=== PATIENT | female | born 1975 | race Caucasian/White ===

== ENCOUNTER 2019-01-23 19:37 | Inpatient (IN) | payer BC ==
[2019-01-23] MEDS ORDERED: HYDROmorphone 0.5 MG/0.5 ML Syringe IVPUSH ONE (20:11)
[2019-01-23] MEDS ORDERED: Ondansetron 4 MG/2 ML SDV IVPUSH ONE (20:11)
[2019-01-23] MEDS ORDERED: Sodium Chloride 0.9% 1,000 ML IV SCH (20:15)
--- NOTE | 2019-01-23 20:16 | EDM.PDOC ---
ED HPI GENERAL MEDICAL PROBLEM - General Chief Complaint: Abdominal Pain Stated Complaint: ABD PAIN Time Seen by Provider: 01/23/19 20:05 Source of Information: Reports: Patient History Limitations: Reports: No Limitations - History of Present Illness INITIAL COMMENTS - FREE TEXT/NARRATIVE: 43-year-old female who has a history of a colectomy 8 years ago after a perforation, has had 2 bowel obstructions since that time. 4 hours ago she started developing upper abdominal pain, the pressure is become worse with nausea and feels very similar to previous bowel obstructions. She did have a bowel movement in the last 4 hours. No fevers or chills, no chest pain, no shortness of breath or rash. No urinary symptoms. Onset: Sudden Duration: Hour(s): (symptoms started fairly sudden 4 hours ago) Location: Reports: Abdomen Improves with: Reports: None Worsens with: Reports: None Associated Symptoms: Reports: Nausea/Vomiting. Denies: Chest Pain, Shortness of Breath Upper Abdomen Pain Score (Numeric/FACES): 4 - Related Data Allergies Allergy/AdvReac Type Severity Reaction Status Date / Time No Known Allergies Allergy Verified 01/23/19 19:52 Home Meds: Home Meds Sertraline HCl [Zoloft] 75 mg PO DAILY 08/23/14 [History] Gabapentin 300 mg PO BEDTIME 05/25/16 [History] Past Medical History HEENT History: Reports: Impaired Vision Other HEENT History: contacts and glasses Cardiovascular History: Reports: High Cholesterol Respiratory History: Reports: Sleep Apnea Other Respiratory History: c-pap Gastrointestinal History: Reports: Bowel Obstruction, Chronic Diarrhea [employer]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: Endometriosis, Fibroids, Polycystic Ovaries Musculoskeletal History: Reports: Back Pain, Chronic Psychiatric History: Reports: Anxiety, Depression, Panic Attack, PTSD Oncologic (Cancer) History: Reports: Other (See Below) Other Oncologic History: basil cell CA Dermatologic History: Reports: Eczema - Infectious Disease History Infectious Disease History: Reports: Chicken Pox - Past Surgical History GI Surgical History: Reports: Appendectomy, Colon, Colonoscopy, Hernia Repair/ Other, Lysis of Adhesions, Small Bowel Female Surgical History: Reports: Hysterectomy, Tubal Ligation Dermatological Surgical History: Reports: Skin Biopsy Social & Family History - Tobacco Use Smoking Status *Q: Current Every Day Smoker Years of Tobacco use: 25 Packs/Tins Daily: 0.5 Used Tobacco, but Quit: No Second Hand Smoke Exposure: Yes - Caffeine Use Caffeine Use: Reports: Energy Drinks Caffeine Use Comment: 1/day - Alcohol Use Days Per Week of Alcohol Use: 2 Number of Drinks Per Day: 4 Total Drinks Per Week: 8 - Recreational Drug Use Recreational Drug Use: No - Living Situation & Occupation Living situation: Reports: , with Spouse ED ROS GENERAL - Review of Systems Review Of Systems: See Below Constitutional: Reports: Malaise. Denies: Fever, Chills HEENT: Reports: No Symptoms Respiratory: Denies: Shortness of Breath Cardiovascular: Denies: Chest Pain GI/Abdominal: Reports: No Symptoms, Abdominal Pain, Nausea, Vomiting. Denies: Constipation, Diarrhea : Reports: No Symptoms Skin: Reports: No Symptoms Neurological: Reports: No Symptoms Psychiatric: Reports: No Symptoms ED EXAM, GI/ABD - Physical Exam Exam: See Below Exam Limited By: No Limitations General Appearance: Alert, Mild Distress Eyes: Bilateral: Normal Appearance Respiratory/Chest: No Respiratory Distress Cardiovascular: Regular Rate, Rhythm GI/Abdominal Exam: Normal Bowel Sounds, Soft, Tender (Very tender with guarding across the upper abdomen) Extremities: No: Pedal Edema Neurological: Alert, Oriented Psychiatric: Anxious Skin Exam: Warm, Dry Course - Vital Signs Last Recorded V/S: Last Vital Signs Temp 99.0 F 01/23/19 22:42 Pulse 81 01/23/19 22:42 Resp 16 01/23/19 22:42 BP 143/69 H 01/23/19 22:42 Pulse Ox 96 01/23/19 22:42 - Orders/Labs/Meds Orders: Active Orders 24 hr Category Date Time Status Sodium Chloride 0.9% [Normal Saline] 1,000 ml Med 01/23/19 20:15 Active IV ASDIRECTED Medication Orders Hydromorphone HCl (Dilaudid) 0.5 mg IVPUSH Q2H PRN PRN Reason: PAIN Last Admin: 01/23/19 23:17 Dose: 0.5 mg Sodium Chloride (Normal Saline) 1,000 mls @ 500 mls/hr IV ASDIRECTED KAMRAN Last Admin: 01/23/19 20:25 Dose: 500 mls/hr Dextrose/Lactated Ringer's (Dextrose 5%-Lactated Ringers) 1,000 mls @ 200 mls/ hr IV ASDIRECTED KAMRAN Last Admin: 01/23/19 23:05 Dose: 200 mls/hr Ondansetron HCl (Zofran) 4 mg IVPUSH Q6H PRN PRN Reason: Nausea/VOMITING Labs: Laboratory Tests 01/23/19 01/23/19 01/23/19 Range/Units 20:10 20:10 20:11 WBC 10.2 (4.5-11.0) K/uL RBC 5.76 H (3.30-5.50) M/uL Hgb 17.4 H D (12.0-15.0) g/dL Hct 51.7 H (36.0-48.0) % MCV 90 (80-98) fL MCH 30 (27-31) pg MCHC 34 (32-36) % Plt Count 187 (150-400) K/uL Neut % (Auto) 58 (36-66) % Lymph % (Auto) 28 (24-44) % Norman % (Auto) 9 H (2-6) % Eos % (Auto) 4 (2-4) % Baso % (Auto) 1 (0-1) % Sodium 136 L (140-148) mmol/L Potassium 4.4 (3.6-5.2) mmol/L Chloride 100 (100-108) mmol/L Carbon Dioxide 26 (21-32) mmol/L Anion Gap 14.4 H (5.0-14.0) mmol/L BUN 25 H (7-18) mg/dL Creatinine 1.4 H (0.6-1.0) mg/dL Est Cr Clr Drug Dosing 45.66 mL/min Estimated GFR (MDRD) 41 L (>60) Glucose 103 (74-106) mg/dL Calcium 9.3 (8.5-10.1) mg/dL Total Bilirubin 0.3 (0.2-1.0) mg/dL AST 27 (15-37) U/L ALT 37 (12-78) U/L Alkaline Phosphatase 108 (46-116) U/L Total Protein 8.0 (6.4-8.2) g/dL Albumin 4.1 (3.4-5.0) g/dL Globulin 3.9 H (2.3-3.5) g/dL Albumin/Globulin Ratio 1.1 L (1.2-2.2) Lipase 200 (73-393) U/L Meds: Medications Generic Name Dose Route Start Last Admin Trade Name Freq PRN Reason Stop Dose Admin Hydromorphone HCl 0.5 mg 01/23/19 22:53 01/23/19 23:17 Dilaudid IVPUSH 0.5 mg Q2H PRN Administration PAIN Sodium Chloride 1,000 mls @ 500 mls/hr 01/23/19 20:15 01/23/19 20:25 Normal Saline IV 500 mls/hr ASDIRECTED KAMRAN Administration Dextrose/Lactated Ringer's 1,000 mls @ 200 mls/hr 01/23/19 23:00 01/23/19 23: 05 Dextrose 5%-Lactated Ringers IV 200 mls/hr ASDIRECTED KAMRAN Administration Ondansetron HCl 4 mg 01/23/19 22:50 Zofran IVPUSH Q6H PRN Nausea/VOMITING Discontinued Medications Generic Name Dose Route Start Last Admin Trade Name Freq PRN Reason Stop Dose Admin Hydromorphone HCl 0.5 mg 01/23/19 20:11 01/23/19 20:28 Dilaudid IVPUSH 01/23/19 20:12 0.5 mg ONETIME ONE Administration Ondansetron HCl 4 mg 01/23/19 20:11 01/23/19 20:26 Zofran IVPUSH 01/23/19 20:12 4 mg ONETIME ONE Administration Pantoprazole Sodium 40 mg 01/23/19 23:00 01/23/19 23:14 Protonix Iv IVPUSH 01/23/19 23:01 40 mg ONETIME ONE Administration - Re-Assessments/Exams Free Text/Narrative Re-Assessment/Exam: 01/23/19 20:16 An IV was started, patient was given 4 mg of IV Zofran and 0.5 mg of IV Dilaudid. 500 mL normal saline an hour was initiated, CBC CMP and lipase ordered. She will need a CT scan of the abdomen without contrast. 01/23/19 21:33 IV medications did help the patient's pain. Lipase was normal, BUN and creatinine were mildly elevated but the rest of her labs are reassuring. The CT of the abdomen was ordered without contrast. 01/23/19 21:48 IMPRESSION: 1. Stable postoperative changes from a subtotal colectomy. 2. Mild dilatation of small bowel loops with fluid levels and mild stool stasis. This finding is similar to the prior exam and could be chronic. However , a recurrent partial small bowel obstruction is also possible. 3. Remainder of the exam is unremarkable. Discussed above findings with Dr. Lewis and the patient and her family. She'll be admitted tonight with IV hydration and pain control, two-view abdominal x- ray in the a.m. and surgical evaluation. If she worsens tonight an NG can be considered. Departure - Departure Time of Disposition: 22:28 Disposition: Admitted As Inpatient 64 Clinical Impression: Small bowel obstruction Abdominal pain Qualifiers: Abdominal location: upper abdomen, unspecified Qualified Code(s): R10.10 - Upper abdominal pain, unspecified - Discharge Information - My Orders Last 24 Hours: My Active Orders 01/23/19 20:15 Sodium Chloride 0.9% [Normal Saline] 1,000 ml IV ASDIRECTED - Assessment/Plan Last 24 Hours: My Active Orders 01/23/19 20:15 Sodium Chloride 0.9% [Normal Saline] 1,000 ml IV ASDIRECTED
--- NOTE | 2019-01-23 21:45 | CRLCT ---
INDICATION: Abdominal pain TECHNIQUE: CT abdomen and pelvis without contrast. COMPARISON: May 25, 2016 FINDINGS: Lower chest: Unremarkable. Liver: Normal in size and attenuation. No masses. Gallbladder and bile ducts: No stones or inflammation. No biliary dilatation. Pancreas: Unremarkable. No mass or inflammation. Spleen: Normal in size. No masses. Adrenal glands: Normal in size. No nodules. Kidneys: Normal in size. No masses, stones, or hydronephrosis. GI tract: Again demonstrated are postoperative changes from a subtotal colectomy. Mild dilatation of mid to distal small bowel loops with fluid levels and stool stasis, this is similar to the prior exam. No focal inflammation or mass. Vasculature: Unremarkable. Lymph nodes: No lymphadenopathy. Abdominal wall/Omentum/Peritoneum: Unremarkable. No sign of mass or infiltration. No free air or significant free fluid. Pelvis: Unremarkable. No pelvic masses. Bones: Unremarkable for age. IMPRESSION: 1. Stable postoperative changes from a subtotal colectomy. 2. Mild dilatation of small bowel loops with fluid levels and mild stool stasis. This finding is similar to the prior exam and could be chronic. However, a recurrent partial small bowel obstruction is also possible. 3. Remainder of the exam is unremarkable. Dictated by Adeel Arrington MD @ 01/23/2019 9:42:40 PM Please note that all CT scans at this facility use dose modulation, iterative reconstruction, and/or weight-based dosing when appropriate to reduce radiation dose to as low as reasonably achievable. Dictated by: Adeel Arrington MD @ 01/23/2019 21:42:46 (Electronically Signed)
[2019-01-23] MEDS ORDERED: Ondansetron 4 MG/2 ML SDV IVPUSH PRN (22:50)
[2019-01-23] MEDS ORDERED: HYDROmorphone 0.5 MG/0.5 ML Syringe IVPUSH PRN (22:53)
[2019-01-23] MEDS ORDERED: Pantoprazole 40 MG Vial IVPUSH ONE (23:00)
[2019-01-23] MEDS: Dextrose 5%-Lactated Ringers 1,000 ML IV SCH (23:05)
[2019-01-24] MEDS: Dextrose 5%-Lactated Ringers 1,000 ML IV SCH ×3 (04:10→19:11)
--- NOTE | 2019-01-24 05:06 | CRLCR ---
INDICATION: SMALL OBSTRUCTION. COMPARISON: CT 01/23/2019. FINDINGS: Supine and upright views of the abdomen and pelvis demonstrate an unobstructed bowel gas pattern. There are no dilated loops of small bowel or differential air-fluid levels. Numerous anastomotic suture noted throughout the abdomen. There is no evidence of free intraperitoneal air. Moderate retained formed stool. No pneumatosis. No acute osseous findings. IMPRESSION: Unobstructed bowel gas pattern. No evidence perforation or free air. Dictated by Wale Sinclair MD @ 01/24/2019 5:03:38 AM Dictated by: Wale Sinclair MD @ 01/24/2019 05:03:51 (Electronically Signed)
--- NOTE | 2019-01-24 09:28 | CONS ---
DATE OF SERVICE: 01/24/2019 REFERRING PHYSICIAN: CONSULTING PHYSICIAN: Terrie Haines PA-C HISTORY OF PRESENT ILLNESS: Valentin was admitted to the hospital yesterday. She is a 43-year- old female and presented to [facility] with abdominal pain. She has a history of a colectomy 8 years ago after bowel perforation and after that she had 2 surgeries for bowel obstruction. Abdominal pain is sudden onset, upper part of the abdomen, radiates across the right and the left associated with nausea and vomiting. Last bowel movement was 4 hours ago. She reports abdominal pain as bloating, pressure that comes and goes in waves, but does not ever completely let up. Has no other associated signs and symptoms. Aggravating factors, none and alleviating factors, none. The pain on the pain scale of 1-10, she states was a 10 when she came in, right now it is a 2-4. She currently is on IV fluids and has been n.p.o. Denies any episodes prior to this one. ALLERGIES: NO KNOWN MEDICAL ALLERGIES. HOME MEDICATIONS: 1. Sertraline (Zoloft) 75 mg p.o. daily. 2. Gabapentin 300 mg p.o. at bedtime for restless legs. PAST MEDICAL HISTORY: 1. HEENT: Wears corrective lenses for near and farsightedness. Wears contacts and glasses. 2. Cardiovascular History: High cholesterol. 3. Respiratory History: Sleep apnea, uses a CPAP. 4. GI: Chronic diarrhea after colectomy and history of bowel obstructions x2. 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 6. Musculoskeletal History: Chronic back pain. 7. Psychiatric History: Reports anxiety, depression, panic attacks, and PTSD. 8. Skin History: Basal cell carcinoma and eczema. PAST SURGICAL HISTORY: Includes appendectomy, colectomy, hernia repair, 2 small bowel obstructions, hysterectomy, tubal ligation, and skin biopsies. SOCIAL HISTORY: . Smokes 1/2 pack a day. Caffeine Use: Energy drinks 1 per day. Alcohol Use: 8 per week. REVIEW OF SYSTEM: CONSTITUTIONAL: Denies any fever, chills, night sweats. Reports fatigue. HEENT: Negative. RESPIRATORY: Denies any shortness of breath or cough. CARDIOVASCULAR: No chest pain, fast or irregular heart beat. Denies any swelling in ankles or feet. GI: As above. : No UTI signs and symptoms. NEUROLOGIC: No headache, dizziness, or loss of coordination. PSYCHIATRIC: States is asymptomatic with medications. PHYSICAL EXAMINATION: GENERAL: Aniya Ibanez is a pleasant 43-year-old female. VITAL SIGNS: Height 5 feet 5 inches. Weight is 186 pounds. BMI 31. TPR 97.3, 65, and 16. Blood pressure 128/70. HEENT: Negative. NECK: Supple. HEART: Regular rate and rhythm. LUNGS: Clear. ABDOMEN: Soft. There is some minimal tenderness in all 4 quadrants. EXTREMITIES: Without peripheral edema. NEUROLOGIC: Intact. PSYCHIATRIC: Mood and affect appropriate. ASSESSMENT: 1. Partial small bowel obstruction. 2. Dehydration. 3. Chronic diarrhea. 4. Anxiety and depression. 5. Basal cell carcinoma. PLAN: 1. Remain n.p.o. with ice chips. 2. Zoloft 75 mg p.o. one daily started. 3. Gabapentin 300 mg p.o. at bedtime. 4. Check abdominal flat and upright in a.m. at 0400. 5. Check CBC, CMP, mag, and phos in a.m. 6. We will evaluate p.r.n. or in a.m. Terrie Haines PA-C /[id number]
[2019-01-24] MEDS: Sertraline 25 MG Tab PO SCH (09:36)
[2019-01-24] MEDS ORDERED: Gabapentin 300 MG Cap PO SCH (21:00)
[2019-01-25] MEDS: Dextrose 5%-Lactated Ringers 1,000 ML IV SCH (04:23)
--- NOTE | 2019-01-25 06:05 | CRLCR ---
Indication: Postop ileus Technique: Four views of the abdomen Comparison: 01/24/2019 Findings/Impression: : A nonobstructive bowel gas pattern. A few nondilated gas-filled bowel segments are nonspecific. Bowel sutures and surgical clips again seen. Stable osseous structures. Dictated by French Jacobs MD @ 01/25/2019 6:05:03 AM Dictated by: French Jacobs MD @ 01/25/2019 06:05:07 (Electronically Signed)
[2019-01-25 07:46] VITALS: BP 129/64
[2019-01-25] MEDS: Sertraline 25 MG Tab PO SCH (08:05)
--- NOTE | 2019-01-25 12:05 | DISCH ---
ADMISSION DIAGNOSES: 1. Partial small bowel obstruction. 2. Dehydration. 3. Chronic diarrhea. 4. Anxiety, depression. 5. Basal cell carcinoma. DISCHARGE DIAGNOSES: 1. Medical resolution of partial small bowel obstruction. 2. Status post dehydration. HISTORY: Aniya Ibanez is a pleasant 43-year-old female who presented to [facility] Emergency Department with abdominal pain, nausea, vomiting, and history of a partial small bowel obstruction. She was admitted to the hospital for observation with daily abdominal flat and upright, IV fluids. Diet was ice chips only. Her pain resolved. She had a bowel movement, passing flatus, and she was able to be discharged to home on 01/25/2019. REVIEW OF SYSTEMS: CONSTITUTIONAL: Denies any fever, chills, night sweats. Reports fatigue. HEENT: Negative. RESPIRATORY: No shortness of breath or cough. CARDIOVASCULAR: No chest pain, fast irregular heartbeat. Denies any swelling in ankles or feet. GASTROINTESTINAL: As above. GENITOURINARY: No UTI signs or symptoms. NEUROLOGIC: No headache, dizziness, loss of coordination. PSYCHIATRIC: Negative. PHYSICAL EXAMINATION: GENERAL: Aniya Ibanez is a pleasant 43-year-old female. VITAL SIGNS: Height is 5 feet 4.96 inches, weight is 186 pounds. TPR 97.1, 64, 16, blood pressure 129/64. HEENT: Negative. NECK: Supple. HEART: Regular rate and rhythm. LUNGS: Clear. ABDOMEN: Soft, flat, nontender. GENITOURINARY: Deferred. EXTREMITIES: Without peripheral edema. NEUROLOGIC: Intact. PSYCHIATRIC: Mood and affect appropriate. DISPOSITION: Discharged to home. CONDITION: Stable and improving. FOLLOWUP APPOINTMENT: With Luciano Lewis MD, on 02/07/2019 at 9 a.m. DIET: GI soft, low residue. ACTIVITY: As tolerated. May drive. DISCHARGE INSTRUCTIONS: Notify provider if any fever, increased pain, nausea, or vomiting. MEDICATIONS: Resume home medications. Sertraline/Zoloft 75 mg p.o. daily, gabapentin 300 mg p.o. at bedtime. The patient did receive dietary instruction prior to discharge.
== END 2019-01-25 09:20 | disposition home or self-care (01) | DRG 247 ==
LOC: JP.ED 19:37 → JP.2SS 21:50
PROVIDERS: ADMIT Surgery; ATTEND Surgery
DX: K56.600 Partial intestinal obstruction, unspecified as to cause (principal); F32.9 Major depressive disorder, single episode, unspecified; E86.0 Dehydration; H54.7 Unspecified visual loss; E78.00 Pure hypercholesterolemia, unspecified; G47.30 Sleep apnea, unspecified; R19.7 Diarrhea, unspecified; F41.0 Panic disorder [episodic paroxysmal anxiety]; F43.10 Post-traumatic stress disorder, unspecified; F17.210 Nicotine dependence, cigarettes, uncomplicated; Z85.828 Personal history of other malignant neoplasm of skin; Z90.710 Acquired absence of both cervix and uterus; Z98.51 Tubal ligation status; Z90.49 Acquired absence of other specified parts of digestive tract; Z79.899 Other long term (current) drug therapy
CPT/HCPCS: 36415; 74019; 74176; 80053; 83690; 83735; 84100; 85025; 85027; 96361; 96374; 96375; 99285-25; A9270-GY; C9113; J1170; J2405; J7030; J7042

== ENCOUNTER 2022-10-24 16:39 | Emergency (ER) | payer BC ==
[2022-10-24] MEDS ORDERED: Ketorolac 30 MG/ML SDV IM ONE (17:24)
[2022-10-24] MEDS ORDERED: Cyclobenzaprine 10 MG Tab PO ONE (17:25)
[2022-10-24] MEDS ORDERED: Ondansetron 4 MG/2 ML SDV IVPUSH ONE (18:31)
[2022-10-24] MEDS ORDERED: HYDROmorphone 1 MG/ML Syringe IVPUSH ONE ×2 (18:31→19:43)
[2022-10-24] MEDS ORDERED: ALPRAZolam 0.25 MG Tab PO ONE (18:59)
[2022-10-24 19:20] VITALS: BP 169/87; PULSE 76
== END 2022-10-24 20:21 | disposition home or self-care (01) ==
LOC: JP.ED 16:39
DX: M54.16 Radiculopathy, lumbar region (principal); F17.210 Nicotine dependence, cigarettes, uncomplicated
CPT/HCPCS: 96372; 96374; 96375; 96376; 99283; A9270; J1170; J1885; J2405

== ENCOUNTER 2024-08-06 19:18 | Inpatient (IN) | payer BC, OTHER ==
[2024-08-06 19:54] LABS: BASOPHILS ABSOLUTE AUTO 0.08 K/uL (0.00-0.10); BASOPHILS PERCENT AUTO 0.8 % (0.1-1.3); EOSINOPHILS ABSOLUTE AUTO 0.31 K/uL (0.00-0.40); EOSINOPHILS PERCENT AUTO 3.1 % (0.0-5.4); HEMATOCRIT 46.4 % (34.3-46.0); HEMOGLOBIN 16.1 g/dL (11.2-15.5); IMMATURE GRAN ABSOLUTE AUTO 0.05 K/uL (0.00-0.23); IMMATURE GRAN PERCENT AUTO 0.5 % (0.0-0.7); LYMPHOCYTES ABSOLUTE AUTO 1.83 K/uL (0.8-3.3); LYMPHOCYTES PERCENT AUTO 18.1 % (11.4-47.7); MEAN CORPUSCULAR HEMOGLOBIN 31.2 pg (31.6-35.5); MEAN CORPUSCULAR HGB CONC 34.7 g/dL (31.6-35.5); MEAN CORPUSCULAR VOLUME 89.9 fL (81.4-99.0); MONOCYTES ABSOLUTE AUTO 0.69 K/uL (0.20-0.90); MONOCYTES PERCENT AUTO 6.8 % (3.3-12.6); NEUTROPHILS ABSOLUTE AUTO 7.17 K/uL (1.0-7.6); NEUTROPHILS PERCENT AUTO 70.7 % (40.0-78.1); PLATELET COUNT,PLT 141 K/uL (130-375); RED BLOOD CELL COUNT 5.16 M/uL (3.77-5.24); WHITE BLOOD CELL COUNT,WBC 10.1 K/uL (3.2-11.0)
[2024-08-06] MEDS: Ondansetron 4 MG/2 ML SDV IVPUSH ONE (20:08)
[2024-08-06] MEDS: Ketorolac 15 MG/ML SDV IVPUSH ONE (20:11)
[2024-08-06 20:17] LABS: A/G RATIO 1.2 (1.2-2.2); ALANINE AMINOTRANSFERASE,ALT 31 U/L (12-78); ALBUMIN 3.8 g/dL (3.4-5.0); ALKALINE PHOSPHATASE 105 U/L (46-116); ANION GAP 10.9 mmol/L (5.0-14.0); ASPARTATE AMNIOTRANSFERASE,AST 20 U/L (15-37); BILIRUBIN TOTAL 0.3 mg/dL (0.2-1.0); BLOOD UREA NITROGEN,BUN 23 mg/dL (7-18); CALCIUM 9.2 mg/dL (8.5-10.1); CARBON DIOXIDE,CO2 24 mmol/L (21-32); CHLORIDE,CL 105 mmol/L (100-108); CREATININE 1.4 mg/dL (0.6-1.0); EST CRCL DRUG DOSING (CG) 41.51 mL/min; ESTIMATED GFR 46 mL/min (>60); GLUCOSE RANDOM 108 mg/dL (74-106); POTASSIUM,K 3.9 mmol/L (3.6-5.2); SODIUM,NA 140 mmol/L (140-148)
[2024-08-06] MEDS: Sodium Chloride 0.9% 80 ML IV SCH (20:30)
[2024-08-06] MEDS: Iopamidol 612 MG/ML 100 ML Bottle IV SCH (20:30)
[2024-08-06] MEDS: Sodium Chloride 0.9% 1,000 ML IV SCH ×2 (20:48→22:03)
[2024-08-06] MEDS ORDERED: Naloxone 0.4 MG/ML SDV IVPUSH PRN (21:54)
[2024-08-06] MEDS ORDERED: HYDROmorphone 0.5 MG/0.5 ML Syringe IVPUSH PRN (21:54)
[2024-08-06] MEDS ORDERED: Sodium Chloride 0.9% 1,000 ML IV SCH (22:00)
[2024-08-06] MEDS: Morphine 4 MG/ML Syringe IVPUSH ONE (22:02)
[2024-08-06 22:17] LABS: APPEARANCE,URINE CLEAR (CLEAR); BILIRUBIN,URINE NEGATIVE (NEGATIVE); COLOR,URINE YELLOW (YELLOW); GLUCOSE,URINE NEGATIVE (NEGATIVE); KETONES,URINE NEGATIVE (NEGATIVE); LEUKOCYTE ESTERASE,URINE NEGATIVE (NEGATIVE); NITRITE,URINE NEGATIVE (NEGATIVE); OCCULT BLOOD,URINE NEGATIVE (NEGATIVE); PROTEIN,URINE NEGATIVE (NEGATIVE); UROBILINOGEN,URINE 0.2 EU/dL (0.2-1.0)
[2024-08-06 22:24] LABS: AMORPHOUS SEDIMENT,URINE NOT SEEN; BACTERIA,URINE FEW; EPITHELIAL CELLS,URINE FEW; MUCUS,URINE NOT SEEN; RBC,URINE NOT SEEN (0-5); WBC,URINE 0-5 (0-5)
[2024-08-06] MEDS: Pantoprazole 40 MG Vial IVPUSH SCH (23:40)
[2024-08-07] MEDS: Ondansetron 4 MG/2 ML SDV IVPUSH PRN (07:37)
[2024-08-07] MEDS ORDERED: Sodium Chloride 0.9% 10 ML Syringe FLUSH PRN (09:40)
[2024-08-07] MEDS ORDERED: HYDROmorphone 1 MG/ML Syringe IVPUSH PRN (09:40)
[2024-08-07] MEDS ORDERED: Nicotine 14 MG/24 Hr Patch TRDERM PRN (09:40)
[2024-08-07] MEDS ORDERED: HYDROmorphone 0.5 MG/0.5 ML Syringe IVPUSH PRN (09:54)
[2024-08-07] MEDS: LORazepam 2 MG/ML SDV IVPUSH PRN (10:00)
[2024-08-07] MEDS: Sodium Chloride 0.9% 1,000 ML IV SCH (10:23)
[2024-08-07] MEDS: Phenol/Sodium Phenolate Spray 180 ML Bottle MUCMEM PRN (10:37)
[2024-08-07] MEDS: Lidocaine 4% Top Soln 50 ML Bottle MUCMEM ONE (10:47)
[2024-08-07] MEDS: Benzocaine/Cetylpyridinium/Menthol Lozenge MUCMEM PRN (11:30)
[2024-08-07] MEDS: Ondansetron 4 MG/2 ML SDV IV PRN (12:33)
[2024-08-07] MEDS: Gabapentin 300 MG Cap PO SCH (21:24)
[2024-08-07] MEDS: Pantoprazole 40 MG Vial IVPUSH SCH (21:24)
[2024-08-07] MEDS: Sertraline 50 MG Tab PO SCH (21:24)
[2024-08-08 06:10] LABS: ANION GAP 13.3 mmol/L (5.0-14.0); CALCIUM 8.7 mg/dL (8.5-10.1); CREATININE 1.3 mg/dL (0.6-1.0); EST CRCL DRUG DOSING (CG) 44.71 mL/min; POTASSIUM,K 4.3 mmol/L (3.6-5.2)
[2024-08-08] MEDS ORDERED: Acetaminophen 325 MG Tab PO PRN (09:12)
[2024-08-08 12:36] VITALS: BP 136/74; PULSE 60
== END 2024-08-08 13:41 | disposition home or self-care (01) | DRG 390 ==
LOC: JP.ED 19:18 → JP.MS 23:09
PROVIDERS: ADMIT Nurse Practitioner; ATTEND Nurse Practitioner
PROC: 0DH67UZ Insertion of Feeding Device into Stomach, Via Natural or Artificial Opening (ICD-10-PCS; principal; 2024-08-06)
DX: K56.51 Intestinal adhesions [bands], with partial obstruction (principal); F17.210 Nicotine dependence, cigarettes, uncomplicated; H54.7 Unspecified visual loss; G47.30 Sleep apnea, unspecified; E78.00 Pure hypercholesterolemia, unspecified; F41.9 Anxiety disorder, unspecified; F32.A Depression, unspecified; F43.10 Post-traumatic stress disorder, unspecified; Z90.710 Acquired absence of both cervix and uterus; Z90.49 Acquired absence of other specified parts of digestive tract; Z98.890 Other specified postprocedural states; Z88.1 Allergy status to other antibiotic agents; Z79.899 Other long term (current) drug therapy; Z98.51 Tubal ligation status
CPT/HCPCS: 36415; 71045; 71045-26; 74018; 74018-26; 74019; 74019-26; 74177; 80048; 80053; 81001; 83605; 85025; 96361; 96374; 96375; 99222; 99232; 99238; 99285-25; A9270-GY; J1885; J2060; J2270; J2405; J2470; J7030; Q9967